=== PATIENT | female | born 1945 | race African-American/Black ===

== ENCOUNTER 2018-04-10 12:06 | Inpatient (IN) | payer MEDICARE, OTHER ==
[~2018-04-10] VITALS: Ht 167.6 cm; Wt 77.3 kg
[~2018-04-10 12:06] MED LIST: AMIO200T4; ASPI-831; CALC1TAB98; CARV25TA79; FINOFIBRATE; FURO-109 PO; FURO20TA3; HYDR-3672; ISOS20TA; LOSA100T3; NIAC750T; TIOT18CA; [UNRECOGNIZED DRUG - CODE]
[2018-04-10] MEDS ORDERED: ISM20 PO (14:37)
[2018-04-10] MEDS ORDERED: HYDR-3672 PO (14:38)
[2018-04-10] MEDS ORDERED: FURO40TA4 PO (14:38)
[2018-04-10] MEDS ORDERED: ALLO100T PO (14:38)
[2018-04-10] MEDS ORDERED: CARV25TA79 PO (14:39)
--- NOTE | 2018-04-10 15:24 | ERD ---
ER Documentation Chief Complaint Chief Complaint SOB x 2 days; hx of CHF HPI This is a 72-year-old female who presents for evaluation of exertional shortness of breath the last 2 days, she also endorses some weight gain. She has history of pacemaker, she takes Lasix at home, she cannot recall the dose, she states that she did most likely intake more than her regular sodium amount over the last few days. She denies any chest pain, no nausea or vomiting, or symptoms have been progressively getting worse. ROS All systems reviewed and are negative except as per history of present illness. Medications Home Meds Reported Medications Carvedilol* (Carvedilol*) 25 Mg Tablet, 25 MG PO BID, #60 TAB 04/10/18 Furosemide* (Furosemide*) 40 Mg Tablet, 40 MG PO BID, TAB 04/10/18 Hydralazine Hcl* (Apresoline*) 50 Mg Tab, 50 MG PO TID, #90 TAB 04/10/18 Allopurinol* (Allopurinol*) 100 Mg Tablet, 200 MG PO DAILY, TAB 04/10/18 Isosorbide Mononitrate* (Isosorbide Mononitrate*) 20 Mg Tablet, 20 MG PO TID, TAB 04/10/18 Discontinued Reported Medications Multivitamin (CHILDREN'S CHEWABLE COMPLETE) 1 Each Tab.chew 05/30/13 Furosemide* (Furosemide*) 20 Mg Tablet, DAILY 05/30/13 [Finofibrate] No Conflict Check 05/30/13 Niacin* (Niaspan*) 750 Mg Tablet.sa 05/30/13 Calcium Carbonate-Vitamin D3 (Calcium + D 600 Tablet) 1 Tab Tablet, DAILY 05/30/13 Hydralazine Hcl* (Hydralazine Hcl*) 50 Mg Tab, BID 05/30/13 Carvedilol* (Carvedilol*) 25 Mg Tablet, DAILY 05/30/13 Losartan Potassium* (Cozaar*) 100 Mg Tablet, DAILY 05/30/13 Amiodarone Hcl* (Amiodarone Hcl*) 200 Mg Tablet 05/30/13 Aspirin (Aspirin) 81 Mg Chew, DAILY 05/30/13 Isosorbide (Isordil) 20 Mg Tab 05/30/13 Tiotropium [place]* (Spiriva*) 18 Mcg Cap.w.dev 05/30/13 Discontinued Scripts Furosemide* (Lasix*) 40 Mg Tablet, 40 MG PO DAILY, #20 TAB Prov:JJ WARNER DO 07/14/15 Allergies Allergies: Coded Allergies: No Known Allergy (Unverified , 04/10/18) PMhx/Soc History of Surgery: Yes (AICD) Anesthesia Reaction: No Hx Neurological Disorder: No Hx Respiratory Disorders: No (CHF) Hx Cardiac Disorders: Yes (HTN,AICD) Hx Psychiatric Problems: No Hx Miscellaneous Medical Probl: Yes (DM) Hx Alcohol Use: No Hx Substance Use: No Hx Tobacco Use: No Smoking Status: Never smoker Physical Exam Vitals Vital Signs Date Temp Pulse Resp B/P (MAP) Pulse Ox O2 O2 Flow FiO2 Time Delivery Rate 04/10/18 98.0 74 18 130/84 97 Room Air 17:00 (99) 04/10/18 98.0 77 18 131/87 98 Room Air 15:30 (102) 04/10/18 98.0 84 20 97 Room Air 14:15 04/10/18 97.6 101 17 121/70 100 12:07 (87) Physical Exam Const: No acute distress Head: Atraumatic Eyes: Normal Conjunctiva ENT: Normal External Ears, Nose and Mouth. Neck: Full range of motion. No meningismus. Resp: Clear to auscultation bilaterally Cardio: Regular rate and rhythm, no murmurs Abd: Soft, non tender, non distended. Normal bowel sounds Skin: No petechiae or rashes Back: No midline or flank tenderness Ext: No cyanosis, or edema Neur: Awake and alert Psych: Normal Mood and Affect Result Diagram: 04/10/18 1414 04/10/18 1414 Results 24 hrs Laboratory Tests Test 04/10/18 14:14 04/10/18 16:57 White Blood Count 8.2 10^3/ul Red Blood Count 4.34 10^6/ul Hemoglobin 11.0 g/dl Hematocrit 32.5 % Mean Corpuscular Volume 74.9 fl Mean Corpuscular Hemoglobin 25.3 pg Mean Corpuscular Hemoglobin Concent 33.8 g/dl Red Cell Distribution Width 15.2 % Platelet Count 308 10^3/UL Mean Platelet Volume 10.8 fl Immature Granulocytes % 0.400 % Neutrophils % 64.2 % Lymphocytes % 25.6 % Monocytes % 8.5 % Eosinophils % 1.1 % Basophils % 0.2 % Nucleated Red Blood Cells % 0.0 /100WBC Immature Granulocytes # 0.030 10^3/ul Neutrophils # 5.2 10^3/ul Lymphocytes # 2.1 10^3/ul Monocytes # 0.7 10^3/ul Eosinophils # 0.1 10^3/ul Basophils # 0.0 10^3/ul Nucleated Red Blood Cells # 0.0 10^3/ul Prothrombin Time 14.6 Sec Prothrombin Time Ratio 1.1 INR International Normalized Ratio 1.13 Sodium Level 143 mmol/L Potassium Level 3.8 mmol/L Chloride Level 103 mmol/L Carbon Dioxide Level 28 mmol/L Anion Gap 12 Blood Urea Nitrogen 18 mg/dl Creatinine 1.44 mg/dl Est Glomerular Filtrat Rate mL/min mL/min Glucose Level 103 mg/dl Calcium Level 8.9 mg/dl Total Bilirubin 0.3 mg/dl Direct Bilirubin 0.00 mg/dl Indirect Bilirubin 0.3 mg/dl Aspartate Amino Transf (AST/SGOT) 21 IU/L Alanine Aminotransferase (ALT/SGPT) 23 IU/L Alkaline Phosphatase 99 IU/L Troponin I 0.028 ng/ml 0.033 ng/ml B-Type Natriuretic Peptide 6000 PG/ML Total Protein 6.7 g/dl Albumin 3.7 g/dl Globulin 3.00 g/dl Albumin/Globulin Ratio 1.23 Current Medications Medications Dose Sig/Hiro Start Time Status Last (Trade) Ordered Route PRN Stop Time Admin Dose Reason Admin Furosemide 40 mg ONCE ONCE 04/10/18 DC 04/10/18 (Lasix) IV 15:30 04/10/18 15:40 15:31 Procedures/MDM 72-year-old female who presents with exertional shortness of breath. Patient had some crackles noted bilaterally, she denies fever, she denies chest pain. Thank you her history and physical are consistent with a likely acute CHF exacerbation. Serial troponins were under the threshold for positive value, given her symptoms, I recommended admission for further workup, as she is already on a cardiac regimen. The patient is agreeable to this plan she will be admitted to Dr. Sadler. EKG: Rate/Rhythm: Electronic pacemaker QRS, ST, T-waves: No changes consistent w/ acute ischemia Impression: No evidence of ischemia or arrhythmia Departure Diagnosis: Primary Impression: Shortness of breath Additional Impression: CHF (congestive heart failure) Heart failure type: systolic Heart failure chronicity: acute Qualified Codes: I50.21 - Acute systolic (congestive) heart failure Condition: Stable QUYNH DALE MD Apr 10, 2018 15:23
[2018-04-10] MEDS ORDERED: FUROSEMIDE 40 MG INJ IV ONE (15:30)
[2018-04-10] MEDS ORDERED: POTASSIUM CHLORIDE (SR) 20 MEQ TAB PO STA (19:47)
--- NOTE | 2018-04-10 19:55 | CONS ---
Date/Time of Note Date/Time of Note DATE: 04/10/18 TIME: 19:49 Assessment/Plan Assessment/Plan Hospital Course 1. Congestive heart failure: Acute on chronic secondary systolic heart failure 2. Chronic kidney disease 3. Dyspnea most likely secondary to above. Cannot rule out underlying bronchitis either 4. Hypertension 5. History of nonobstructive coronary artery disease 6. Status post ICD Recommendations: Patient has received a dose of Lasix in the emergency room. According to nursing staff he has gone to the bathroom twice already although it has not been measured. Continue with the patient home medication. IV Lasix will be initiated. She has received a dose now will give another dose tomorrow morning and adjusted accordingly Aldactone will be added as well. We will consider addition of digoxin as well Echocardiogram will be checked Thank you for his referral. We will continue to follow along with you until Dr. Miles or his associate return on Friday STEWART DERAS MD [facility] Result Diagram: 04/10/18 1414 04/10/18 1414 Results 24hrs Laboratory Tests Test 04/10/18 14:14 04/10/18 16:57 White Blood Count 8.2 # Red Blood Count 4.34 Hemoglobin 11.0 L Hematocrit 32.5 L Mean Corpuscular Volume 74.9 L Mean Corpuscular Hemoglobin 25.3 L Mean Corpuscular Hemoglobin Concent 33.8 Red Cell Distribution Width 15.2 H Platelet Count 308 Mean Platelet Volume 10.8 H Immature Granulocytes % 0.400 Neutrophils % 64.2 Lymphocytes % 25.6 Monocytes % 8.5 Eosinophils % 1.1 Basophils % 0.2 Nucleated Red Blood Cells % 0.0 Immature Granulocytes # 0.030 Neutrophils # 5.2 Lymphocytes # 2.1 Monocytes # 0.7 Eosinophils # 0.1 Basophils # 0.0 Nucleated Red Blood Cells # 0.0 Prothrombin Time 14.6 Prothrombin Time Ratio 1.1 INR International Normalized Ratio 1.13 Sodium Level 143 Potassium Level 3.8 Chloride Level 103 Carbon Dioxide Level 28 Anion Gap 12 Blood Urea Nitrogen 18 Creatinine 1.44 H Est Glomerular Filtrat Rate mL/min Glucose Level 103 Calcium Level 8.9 Total Bilirubin 0.3 Direct Bilirubin 0.00 Indirect Bilirubin 0.3 Aspartate Amino Transf (AST/SGOT) 21 Alanine Aminotransferase (ALT/SGPT) 23 Alkaline Phosphatase 99 Troponin I 0.028 0.033 B-Type Natriuretic Peptide 6000 H Total Protein 6.7 Albumin 3.7 Globulin 3.00 Albumin/Globulin Ratio 1.23 Consultation Date/Type/Reason Admit Date/Time Date of Consultation: Apr 10, 2018 Type of Consult CV Reason for Consultation CHF Requesting Provider: MINERVA GALLAGHER MD Hx of Present Illness Interventional cardiology consultation note Chief complaint: Shortness of breath Reason for consult: Congestive heart failure History of present illness: Thank you for this referral. History was obtained from the patient from review of the old chart from discussion with the physician and staff. This is a pleasant 72-year-old -[place] female with history of nonischemic cardiomyopathy status post ICD, who has had increasing shortness of breath over the past few days. Patient said of the past 3 days she has had cough and shortness of breath. No fever no chills. She has minimal lower extremity edema. No palpitation no ICD discharge. Allergies: No known drug allergies Medications were reviewed as per medical reconciliation sheet Family history: No reported history of early coronary artery disease Social history: Has quit smoking many years ago Past medical history: History of severe nonischemic cardiomyopathy status post ICD placement Chronic kidney disease per review of the old chart Hypertension Past surgical history: ICD placement, coronary angiography in 2014 which has shown nonobstructive coronary artery disease Review of system: Patient denies all others except for above-mentioned Past Medical History Allergies: Coded Allergies: No Known Allergy (Unverified , 04/10/18) Social History Smoking Status: Never smoker Exam/Review of Systems Vital Signs Vitals Vital Signs Date Temp Pulse Resp B/P (MAP) Pulse Ox O2 O2 Flow FiO2 Time Delivery Rate 04/10/18 95 16 113/73 96 Room Air 19:35 (86) 04/10/18 98.0 17:00 Exam General: no acute distress HEENT: NC/AT. pupils are equal. round. NECK: NO JVD. no stridor. CV: RRR. systolic murmur; no gallop or rubs. PULM: no wheezing. + rhonchI at the base. GI: SOFT, NT, ND, no rebound or guarding Extremity: trace B/L LE edema. no clubbing. neuro: awake and alert, OX3. Psych: calm and pleasant rectal: deferred EKG was personally reviewed with a ventricular paced rhythm Chest x-ray was also personally reviewed. Per radiology report shows:Cardiomegaly with mild central pulmonary vascular congestion. STEWART DERAS MD Apr 10, 2018 19:55
[2018-04-10 21:20] VITALS: BP 142/64; PULSE 88; RESP 18
[2018-04-10 21:49] VITALS: PULSE 88
[2018-04-10 22:42] VITALS: PULSE 145
[2018-04-10] MEDS: SPIRONOLACTONE 25 MG TAB PO SCH (22:54)
[2018-04-10 23:10] VITALS: Ht 167.6 cm; Wt 77.3 kg
[2018-04-10 23:50] VITALS: BP_SYST 13; BP_SYST 132; BP_DIAS 67; PULSE 85; RESP 18
[2018-04-11] VITALS (9 sets, daily range): BP systolic 125–144; BP diastolic 63–87; PULSE 72–97; RESP 18–22
[2018-04-11] MEDS ORDERED: FUROSEMIDE 40 MG INJ IV SCH ×2 (06:00→09:00)
[2018-04-11] MEDS: ISOSORBIDE MONONITRATE 20 MG TAB PO SCH ×3 (08:53→20:33)
[2018-04-11] MEDS: SPIRONOLACTONE 25 MG TAB PO SCH (08:54)
[2018-04-11] MEDS: POTASSIUM CHLORIDE (SR) 10 MEQ TAB PO SCH (08:54)
[2018-04-11] MEDS: ALLOPURINOL 100 MG TAB PO SCH (08:54)
--- NOTE | 2018-04-11 14:00 | RADRPT ---
Echocardiogram Report Patient Name: AWAIS AMOR Gender: Female Date: 1945 Study Date: 11-Apr-2018 Media Associate: SANTOSH Location: [facility] Height(Cm): 168 Weight(Kg): 77 BSA: 1.90 Ref. Physician: STEWART BRAVO Quality: Adequate Procedures: Transthoracic echocardiogram with complete 2D, M-Mode, and doppler examination. Indications: Congestive Heart Failure. 2D/M Mode Doppler Measurement Value Normal Ranges Measurement Value Normal Ranges LA Volume 80.5 ml AV Peak Axel 0.7 m/sec LA Volume Index 43 ml/m2 AV Peak PG 2.0 mmHg LA Area 26.0 cm2 LVOT Peak Axel 0.6 m/sec LVIDd 2D 6.0 3.5 - 5.6 cm LVOT Peak PG 1.0 mmHg LVIDs 2D 5.5 2.1 - 4.1 cm MV E Peak Axel 1.3 m/sec LVPWd 2D 1.0 0.6 - 1.1 cm MV PHT 28.0 msec IVSd 2D 0.6 0.6 - 1.1 cm MV Decel Time 95 msec AoR Diam 2D 3.6 2.0 - 3.7 cm MV Decel Foard 14 LA/Ao 2D 1 0 - 1 Lat E` Axel 0.0 m/sec LA Dimen 2D 4.8 2.3 - 4.0 cm Lateral E/E` 26.5 IVC Diam 2.6 1.2 - 2.0 Med E` Axel 0.1 m/sec MV PHT 28.0 msec MVA PHT 7.9 cm2 TR Peak Axel 3.1 m/sec TR Peak PG 39.0 mmHg PV Peak Axel 0.5 m/sec PV Peak PG 1.0 mmHg RVSP 54.0 mmHg Findings Left Ventricle: Normal left ventricular wall thickness. Moderate enlargement of left ventricle cavity. Severe left ventricular systolic dysfunction. Ejection fraction is visually estimated at 20 %. Tissue Doppler/Mitral Doppler indices are consistent with restrictive physiology with markedly elevated left atrial pressure (Stage IIIIV diastolic dysfunction). E/E`=26. Right Ventricle: Normal right ventricular size. Mild to moderate right ventricular hypokinesis seen in the subcostal images mid to apex area. Linear artifact in right ventricle suggestive of catheter, pacer lead, or ICD lead. Left Atrium: There is severe enlargement of left atrium. LA Volume Index=43. LA Dimension4.80 cm. Right Atrium: The right atrium is normal in size. Atrial Septum: Normal atrial septum. Mitral Valve: Mitral valve leaflets appear mildly thickened. Moderate to severe mitral valve regurgitation. Aortic Valve: Normal appearance of the aortic valve. No hemodynamically significant aortic stenosis by doppler. Trileaflet aortic valve. Tricuspid Valve: Normal appearance of the tricuspid valve. Estimated peak PA systolic pressure 54 mmHg. There is mild to moderate tricuspid regurgitation. Pulmonic Valve: Normal pulmonic valve appearance. There is mild pulmonic regurgitation. Pericardium: Small pericardial effusion. Right pleural effusion seen. Aorta: Normal aortic root. IVC: Dilated IVC without respiratory collapse consistent with elevated right atrial pressure. Pulmonary Artery: Normal pulmonary artery size. Conclusions 1.Normal left ventricular wall thickness. Moderate enlargement of left ventricle cavity. Severe left ventricular systolic dysfunction. Ejection fraction is visually estimated at 20 %. Tissue Doppler/Mitral Doppler indices are consistent with restrictive physiology with markedly elevated left atrial pressure (Stage III-IV diastolic dysfunction). E/E`=26. 2.There is severe enlargement of left atrium. LA Volume Index=43. LA Dimension4.80 cm. 3.Mitral valve leaflets appear mildly thickened. Moderate to severe mitral valve regurgitation. 4.Normal appearance of the aortic valve. No hemodynamically significant aortic stenosis by doppler. Trileaflet aortic valve. 5.Normal appearance of the tricuspid valve. Estimated peak PA systolic pressure 54 mmHg. There is mild to moderate tricuspid regurgitation. 6.Small to moderate pericardial effusion. Right pleural effusion seen. Electronically Signed By: Stewart Bravo 11-Apr-2018 13:59:47 -0800 Patient Name: AWAIS AMOR Study Date: 11-Apr-2018 [id number]
--- NOTE | 2018-04-11 15:36 | CONS ---
Date/Time of Note Date/Time of Note DATE: 04/11/18 TIME: 15:33 Consult Date/Type/Reason Admit Date/Time Apr 10, 2018 at 18:56 Initial Consult Date 04/10/18 Requesting Provider: MINERVA GALLAGHER MD Subjective Cardiology follow-up progress note Subjective: Discussed with the staff rhythm was reviewed. Patient was shows runs of nonsustained V. tach Patient with no chest pain or pressure. She complains of cough mostly in shortness of breath. Could not explain the particular event that makes the cough course including no change with position including orthopnea Objective: General: no acute distress HEENT: NC/AT. pupils are equal. round. NECK: NO JVD. no stridor. CV: RRR. systolic murmur; no gallop or rubs. PULM: no wheezing. + rhonchI at the base. GI: SOFT, NT, ND, no rebound or guarding Extremity: trace B/L LE edema. no clubbing. neuro: awake and alert, OX3. Psych: calm and pleasant rectal: deferred EKG was personally reviewed with a ventricular paced rhythm Chest x-ray was also personally reviewed. Per radiology report shows:Cardiomegaly with mild central pulmonary vascular congestion. Echocardiogram was personally reviewed which shows: 1. Normal left ventricular wall thickness. Moderate enlargement of left ventricle cavity. Severe left ventricular systolic dysfunction. Ejection fraction is visually estimated at 20 %. Tissue Doppler/Mitral Doppler indices are consistent with restrictive physiology with markedly elevated left atrial pressure (Stage III-IV diastolic dysfunction). E/E`=26. 2. There is severe enlargement of left atrium. LA Volume Index=43. LA Dimension4.80 cm. 3. Mitral valve leaflets appear mildly thickened. Moderate to severe mitral valve regurgitation. 4. Normal appearance of the aortic valve. No hemodynamically significant aortic stenosis by doppler. Trileaflet aortic valve. 5. Normal appearance of the tricuspid valve. Estimated peak PA systolic pressure 54 mmHg. There is mild to moderate tricuspid regurgitation. 6. Small to moderate pericardial effusion. Right pleural effusion seen. Objective Vital Signs Date Temp Pulse Resp B/P (MAP) Pulse Ox O2 O2 Flow FiO2 Time Delivery Rate 04/11/18 97.6 93 22 144/83 96 Nasal 2.0 12:05 (103) Cannula Intake and Output 04/10/18 04/10/18 04/11/18 1414:59 22:59 06:59 IntakeIntake Total 240 ml OutputOutput Total 400 ml BalanceBalance -160 ml Results/Medications Result Diagram: 04/11/18 0459 04/11/18 0459 Results 24 hrs Laboratory Tests Test 04/10/18 16:57 04/11/18 04:59 Troponin I 0.033 0.034 White Blood Count 6.4 # Red Blood Count 4.11 L Hemoglobin 10.3 L Hematocrit 31.2 L Mean Corpuscular Volume 75.9 L Mean Corpuscular Hemoglobin 25.1 L Mean Corpuscular Hemoglobin Concent 33.0 Red Cell Distribution Width 15.0 H Platelet Count 289 Mean Platelet Volume 11.2 H Immature Granulocytes % 0.300 Neutrophils % 67.3 Lymphocytes % 22.7 Monocytes % 8.5 Eosinophils % 0.9 Basophils % 0.3 Nucleated Red Blood Cells % 0.0 Immature Granulocytes # 0.020 Neutrophils # 4.3 Lymphocytes # 1.5 Monocytes # 0.5 Eosinophils # 0.1 Basophils # 0.0 Nucleated Red Blood Cells # 0.0 Sodium Level 142 Potassium Level 3.9 Chloride Level 105 Carbon Dioxide Level 25 Anion Gap 12 Blood Urea Nitrogen 22 H Creatinine 1.47 H Est Glomerular Filtrat Rate mL/min Glucose Level 116 Calcium Level 8.9 Magnesium Level 1.8 Total Bilirubin 0.3 Direct Bilirubin 0.00 Indirect Bilirubin 0.3 Aspartate Amino Transf (AST/SGOT) 23 Alanine Aminotransferase (ALT/SGPT) 22 Alkaline Phosphatase 96 B-Type Natriuretic Peptide 7880 H Total Protein 6.4 Albumin 3.5 Globulin 2.90 Albumin/Globulin Ratio 1.20 Triglycerides Level 99 Cholesterol Level 113 LDL Cholesterol, Calculated 71 HDL Cholesterol 22 L Cholesterol/HDL Ratio 5.1 Thyroid Stimulating Hormone (TSH) 1.400 Free Thyroxine 1.39 Digoxin Level < 0.4 L Medications Current Medications Spironolactone (Aldactone) 25 mg DAILY PO Last administered on 04/11/18at 08:54; Admin Dose 25 MG; Start 04/10/18 at 20:00 Carvedilol (Coreg) 25 mg BID PO ; Start 04/11/18 at 21:00 Hydralazine HCl (Apresoline) 50 mg TID PO Last administered on 04/11/18at 13:18; Admin Dose 50 MG; Start 1/5/19 at 09:00 Isosorbide Mononitrate (Ismo) 20 mg TID PO Last administered on 04/11/18at 13:17; Admin Dose 20 MG; Start 04/11/18 at 09:00 Allopurinol (Zyloprim) 100 mg DAILY PO Last administered on 04/11/18at 08:54; Admin Dose 100 MG; Start 04/11/18 at 09:00 Potassium Chloride (Klor-Con 10) 10 meq DAILY PO Last administered on 04/11/18at 08:54; Admin Dose 10 MEQ; Start 04/11/18 at 09:00 Furosemide (Lasix) 40 mg DAILY@0600 IV Last administered on 04/11/18at 05:54; Admin Dose 40 MG; Start 04/11/18 at 06:00 Assessment/Plan Chief Complaint/Hosp Course 1. Congestive heart failure: Acute on chronic secondary systolic heart failure 2. Chronic kidney disease 3. Dyspnea most likely secondary to above. Cannot rule out underlying bronchitis either 4. Hypertension 5. History of nonobstructive coronary artery disease 6. Status post ICD 7. Small to moderate pericardial effusion 8. Cough question of underlying bronchitis/asthma/pneumonia at the top of her congestive heart failure Recommendations: I will increase IV Lasix to 40 mg IV twice daily for now Continue with the Coreg and hydralazine eyes with combination Aldactone has been added already Digoxin will be added as well Echocardiogram will be checked again on Friday We will ask for pulmonary consultation as well Thank you for his referral. We will continue to follow along with you until Dr. Miles or his associate return on Friday STEWART DERAS MD [facility] STEWART DERAS MD Apr 11, 2018 15:36
[2018-04-11] MEDS: FUROSEMIDE 40 MG INJ IV SCH (17:29)
[2018-04-11] MEDS ORDERED: ACETAMINOPHEN 325 MG TAB PO PRN (18:00)
[2018-04-11] MEDS: GUAIFENESIN 20 MG/ML 5ML CUP PO PRN ×2 (18:16→20:33)
--- NOTE | 2018-04-11 20:39 | HP ---
Date/Time of Note Date/Time of Note DATE: 04/10/18 TIME: 17:39 Assessment/Plan VTE Prophylaxis Risk score (from [facility] [place])>0 risk: 3 SCD applied (from [facility] [place]): No SCD contraindicated: low risk/ambulating Pharmacological prophylaxis: NA/contraindicated Pharm contraindication: low risk/ambulating Lines/Catheters IV Catheter Type (from [facility]): Peripheral IV Urinary Cath still in place: No Assessment/Plan Assessment/Plan 1. sob/ chf 2. htn 3. rld 4. ckd I ---observe admit to tele ---cards ref ---iv diuretic ---no salt diet Result Diagram: 04/11/18 0459 04/11/18 0459 Results 24hrs Laboratory Tests Test 04/11/18 04:59 White Blood Count 6.4 # Red Blood Count 4.11 L Hemoglobin 10.3 L Hematocrit 31.2 L Mean Corpuscular Volume 75.9 L Mean Corpuscular Hemoglobin 25.1 L Mean Corpuscular Hemoglobin Concent 33.0 Red Cell Distribution Width 15.0 H Platelet Count 289 Mean Platelet Volume 11.2 H Immature Granulocytes % 0.300 Neutrophils % 67.3 Lymphocytes % 22.7 Monocytes % 8.5 Eosinophils % 0.9 Basophils % 0.3 Nucleated Red Blood Cells % 0.0 Immature Granulocytes # 0.020 Neutrophils # 4.3 Lymphocytes # 1.5 Monocytes # 0.5 Eosinophils # 0.1 Basophils # 0.0 Nucleated Red Blood Cells # 0.0 Sodium Level 142 Potassium Level 3.9 Chloride Level 105 Carbon Dioxide Level 25 Anion Gap 12 Blood Urea Nitrogen 22 H Creatinine 1.47 H Est Glomerular Filtrat Rate mL/min Glucose Level 116 Calcium Level 8.9 Magnesium Level 1.8 Total Bilirubin 0.3 Direct Bilirubin 0.00 Indirect Bilirubin 0.3 Aspartate Amino Transf (AST/SGOT) 23 Alanine Aminotransferase (ALT/SGPT) 22 Alkaline Phosphatase 96 Troponin I 0.034 B-Type Natriuretic Peptide 7880 H Total Protein 6.4 Albumin 3.5 Globulin 2.90 Albumin/Globulin Ratio 1.20 Triglycerides Level 99 Cholesterol Level 113 LDL Cholesterol, Calculated 71 HDL Cholesterol 22 L Cholesterol/HDL Ratio 5.1 Thyroid Stimulating Hormone (TSH) 1.400 Free Thyroxine 1.39 Digoxin Level < 0.4 L HPI/ROS Admit Date/Time Admit Date/Time Apr 10, 2018 at 18:56 Hx of Present Illness experienced increased sob for 2days with slight weight gain ROS no f/c/n/v/dysuria/bm change, PMH/Family/Social Past Medical History htn, chf, copd, obesity, ckd I Medications Current Medications Spironolactone (Aldactone) 25 mg DAILY PO Last administered on 04/11/18 08:54; Admin Dose 25 MG; Start 04/10/18 at 20:00 Carvedilol (Coreg) 25 mg BID PO Last administered on 04/11/18 20:33; Admin Dose 25 MG; Start 04/11/18 at 21:00 Hydralazine HCl (Apresoline) 50 mg TID PO Last administered on 04/11/18 20:33; Admin Dose 50 MG; Start 04/11/18 at 09:00 Isosorbide Mononitrate (Ismo) 20 mg TID PO Last administered on 04/11/18 20:33; Admin Dose 20 MG; Start 04/11/18 at 09:00 Allopurinol (Zyloprim) 100 mg DAILY PO Last administered on 04/11/18 08:54; Admin Dose 100 MG; Start 04/11/18 at 09:00 Potassium Chloride (Klor-Con 10) 10 meq DAILY PO Last administered on 04/11/18 08:54; Admin Dose 10 MEQ; Start 04/11/18 at 09:00 Furosemide (Lasix) 40 mg BID DIURETICS IV Last administered on 04/11/18 17:29; Admin Dose 40 MG; Start 04/11/18 at 18:00 Acetaminophen (Tylenol Tab) 650 mg Q6H PRN PO MILD PAIN(1-3)OR ELEVATED TEMP Last administered on 04/11/18 18:15; Admin Dose 650 MG; Start 04/11/18 at 18:00 Guaifenesin (Robitussin Liquid Cup) 100 mg Q6H PRN PO COUGH Last administered on 04/11/18 18:16; Admin Dose 100 MG; Start 04/11/18 at 18:00 Coded Allergies: No Known Allergy (Unverified , 04/10/18) Family History Significant Family History: hypertension Social History Alcohol Use: rarely Smoking Status: Never smoker Drug Use: none Exam/Review of Systems Vital Signs Vitals Vital Signs Date Temp Pulse Resp B/P (MAP) Pulse Ox O2 O2 Flow FiO2 Time Delivery Rate 04/10/18 98.0 73 22 154/88 94 nc 2.0 20:00 Intake and Output 04/10/18 04/10/18 04/11/18 1515:00 23:00 07:00 IntakeIntake Total 240 ml OutputOutput Total 400 ml BalanceBalance -160 ml Exam Exam awake, perrla, eomi, nl ears/ nose/ throat, neck-- supple/ no bruite or jvd, lungs-- dec bs bibasilar, heart-- rr, abd-- soft/ nl bs/ no mass/ nt/ nd, ext-- no c/c, +1-2 pit edema, neuro-- cn2-12/ sensory/ musc strength grossly intact, pulses-- +1 MINERVA Lau MD Apr 11, 2018 20:39
[2018-04-11] MEDS: FERROUS SULFATE (EC) 325 MG TAB PO SCH (23:11)
[2018-04-12] VITALS (11 sets, daily range): BP systolic 106–143; BP diastolic 56–84; PULSE 18–93; RESP 12–22
[2018-04-12] MEDS: GUAIFENESIN 20 MG/ML 5ML CUP PO PRN ×2 (00:10→17:12)
[2018-04-12] MEDS: FUROSEMIDE 40 MG INJ IV SCH (05:55)
[2018-04-12] MEDS: ISOSORBIDE MONONITRATE 20 MG TAB PO SCH ×3 (08:04→20:40)
[2018-04-12] MEDS: ALLOPURINOL 100 MG TAB PO SCH (08:05)
[2018-04-12] MEDS: SPIRONOLACTONE 25 MG TAB PO SCH (08:05)
[2018-04-12] MEDS: POTASSIUM CHLORIDE (SR) 10 MEQ TAB PO SCH (08:05)
[2018-04-12] MEDS: FERROUS SULFATE (EC) 325 MG TAB PO SCH ×3 (08:06→20:39)
--- NOTE | 2018-04-12 14:11 | PN ---
Date/Time of Note Date/Time of Note DATE: 04/12/18 TIME: 14:11 Assessment/Plan VTE Prophylaxis Risk score (from [facility])>0 risk: 3 SCD applied (from [facility]): No SCD contraindicated: low risk/ambulating Pharmacological prophylaxis: NA/contraindicated Pharm contraindication: low risk/ambulating Lines/Catheters IV C[facility]ter Type (from [facility] Saline Lock Urinary Cath still in place: No Assessment/Plan Assessment/Plan 1. chf 2. htn 3. copd 4. ckdI ---per cards ---iv diuretic ---less salt diet ed Result Diagram: 04/11/189 04/12/18 0457 Results 24hrs Laboratory Tests Test 04/12/18 04:57 Sodium Level 142 Potassium Level 3.4 L Chloride Level 107 Carbon Dioxide Level 25 Anion Gap 10 Blood Urea Nitrogen 23 H Creatinine 1.45 H Est Glomerular Filtrat Rate mL/min Glucose Level 101 Calcium Level 8.8 Magnesium Level 1.8 Total Bilirubin 0.3 Direct Bilirubin 0.00 Indirect Bilirubin 0.3 Aspartate Amino Transf (AST/SGOT) 19 Alanine Aminotransferase (ALT/SGPT) 24 Alkaline Phosphatase 97 B-Type Natriuretic Peptide 8560 H Total Protein 6.0 L Albumin 3.2 L Globulin 2.80 Albumin/Globulin Ratio 1.14 Subjective 24 Hr Interval Summary Free Text/Dictation still sob, less cp Exam/Review of Systems Vital Signs Vitals Vital Signs Date Temp Pulse Resp B/P (MAP) Pulse Ox O2 O2 Flow FiO2 Time Delivery Rate 04/12/18 71 12 106/56 13:39 (73) 04/12/18 98.0 96 Nasal 11:39 Cannula 04/12/18 2.0 00:00 Intake and Output 04/11/18 04/11/18 04/12/18 1515:00 23:00 07:00 IntakeIntake Total 820 ml 350 ml BalanceBalance 820 ml 350 ml Exam awake, in bed, rr, dec bibasilar bs+, slight pit edema+ Medications Medications Current Medications Spironolactone (Aldactone) 25 mg DAILY PO Last administered on 04/12/18at 08:05; Admin Dose 25 MG; Start 04/10/18 at 20:00 Carvedilol (Coreg) 25 mg BID PO Last administered on 04/12/18at 08:05; Admin Dose 25 MG; Start 04/11/18 at 21:00 Hydralazine HCl (Apresoline) 50 mg TID PO Last administered on 04/12/18 08:05; Admin Dose 50 MG; Start 04/11/18 at 09:00 Isosorbide Mononitrate (Ismo) 20 mg TID PO Last administered on 04/12/18at 08:04; Admin Dose 20 MG; Start 04/11/18 at 09:00 Allopurinol (Zyloprim) 100 mg DAILY PO Last administered on 04/12/18 08:05; Admin Dose 100 MG; Start 04/11/18 at 09:00 Potassium Chloride (Klor-Con 10) 10 meq DAILY PO Last administered on 04/12/18 08:05; Admin Dose 10 MEQ; Start 04/11/18 at 09:00 Furosemide (Lasix) 40 mg BID DIURETICS IV Last administered on 04/12/18at 05:55; Admin Dose 40 MG; Start 04/11/18 at 18:00 Acetaminophen (Tylenol Tab) 650 mg Q6H PRN PO MILD PAIN(1-3)OR ELEVATED TEMP Last administered on 04/11/18at 18:15; Admin Dose 650 MG; Start 04/11/18 at 18:00 Guaifenesin (Robitussin Liquid Cup) 100 mg Q6H PRN PO COUGH Last administered on 04/12/18 00:10; Admin Dose 100 MG; Start 04/11/18 at 18:00 Ferrous Sulfate (Ferrous Sulfate (Ec)) 325 mg TID PO Last administered on 04/12/18 08:06; Admin Dose 325 MG; Start 04/11/18 at 21:00 MINERVA GALLAGHER MD Apr 12, 2018 14:11
--- NOTE | 2018-04-12 16:14 | CONS ---
Date/Time of Note Date/Time of Note DATE: 04/12/18 TIME: 16:13 Consult Date/Type/Reason Admit Date/Time Apr 10, 2018 at 18:56 Initial Consult Date 04/10/18 Requesting Provider: MINERVA GALLAGHER MD Subjective Cardiology follow-up progress note Subjective: Discussed with the staff rhythm was reviewed. Patient remains in NSR / V paced Patient with no chest pain or pressure. She has less shortness of breath and cough today but complains of diarrhea Objective: General: no acute distress HEENT: NC/AT. pupils are equal. round. NECK: NO JVD. no stridor. CV: RRR. systolic murmur; no gallop or rubs. PULM: no wheezing. Very minimal rhonchi at the baseline GI: SOFT, NT, ND, no rebound or guarding Extremity: No significant LE edema. no clubbing. neuro: awake and alert, OX3. Psych: calm and pleasant rectal: deferred EKG was personally reviewed with a ventricular paced rhythm Chest x-ray was also personally reviewed. Per radiology report shows:Cardiomegaly with mild central pulmonary vascular congestion. Echocardiogram was personally reviewed which shows: 1. Normal left ventricular wall thickness. Moderate enlargement of left ventricle cavity. Severe left ventricular systolic dysfunction. Ejection fraction is visually estimated at 20 %. Tissue Doppler/Mitral Doppler indices are consistent with restrictive physiology with markedly elevated left atrial pressure (Stage III-IV diastolic dysfunction). E/E`=26. 2. There is severe enlargement of left atrium. LA Volume Index=43. LA Dimension4.80 cm. 3. Mitral valve leaflets appear mildly thickened. Moderate to severe mitral valve regurgitation. 4. Normal appearance of the aortic valve. No hemodynamically significant aortic stenosis by doppler. Trileaflet aortic valve. 5. Normal appearance of the tricuspid valve. Estimated peak PA systolic pressure 54 mmHg. There is mild to moderate tricuspid regurgitation. 6. Small to moderate pericardial effusion. Right pleural effusion seen. Objective Vital Signs Date Temp Pulse Resp B/P (MAP) Pulse Ox O2 O2 Flow FiO2 Time Delivery Rate 04/12/18 73 16:00 04/12/18 97.6 22 122/69 96 Nasal 15:10 (86) Cannula 04/12/18 2.0 00:00 Intake and Output 04/11/18 04/11/18 04/12/18 1515:00 23:00 07:00 IntakeIntake Total 820 ml 350 ml BalanceBalance 820 ml 350 ml Results/Medications Result Diagram: 04/11/18 0459 04/12/18 0457 Results 24 hrs Laboratory Tests Test 04/12/18 04:57 Sodium Level 142 Potassium Level 3.4 L Chloride Level 107 Carbon Dioxide Level 25 Anion Gap 10 Blood Urea Nitrogen 23 H Creatinine 1.45 H Est Glomerular Filtrat Rate mL/min Glucose Level 101 Calcium Level 8.8 Magnesium Level 1.8 Total Bilirubin 0.3 Direct Bilirubin 0.00 Indirect Bilirubin 0.3 Aspartate Amino Transf (AST/SGOT) 19 Alanine Aminotransferase (ALT/SGPT) 24 Alkaline Phosphatase 97 B-Type Natriuretic Peptide 8560 H Total Protein 6.0 L Albumin 3.2 L Globulin 2.80 Albumin/Globulin Ratio 1.14 Medications Current Medications Spironolactone (Aldactone) 25 mg DAILY PO Last administered on 04/12/18 08:05; Admin Dose 25 MG; Start 04/10/18 at 20:00 Carvedilol (Coreg) 25 mg BID PO Last administered on 04/12/18 08:05; Admin Dose 25 MG; Start 04/11/18 at 21:00 Hydralazine HCl (Apresoline) 50 mg TID PO Last administered on 04/12/18 16:01; Admin Dose 50 MG; Start 04/11/18 at 09:00 Isosorbide Mononitrate (Ismo) 20 mg TID PO Last administered on 04/12/18 16:01; Admin Dose 20 MG; Start 04/11/18 at 09:00 Allopurinol (Zyloprim) 100 mg DAILY PO Last administered on 04/12/18 08:05; Admin Dose 100 MG; Start 04/11/18 at 09:00 Potassium Chloride (Klor-Con 10) 10 meq DAILY PO Last administered on 04/12/18 08:05; Admin Dose 10 MEQ; Start 04/11/18 at 09:00 Furosemide (Lasix) 40 mg BID DIURETICS IV Last administered on 04/12/18 05:55; Admin Dose 40 MG; Start 04/11/18 at 18:00 Acetaminophen (Tylenol Tab) 650 mg Q6H PRN PO MILD PAIN(1-3)OR ELEVATED TEMP Last administered on 04/11/18at 18:15; Admin Dose 650 MG; Start 04/11/18 at 18:00 Guaifenesin (Robitussin Liquid Cup) 100 mg Q6H PRN PO COUGH Last administered on 04/12/18at 00:10; Admin Dose 100 MG; Start 04/11/18 at 18:00 Ferrous Sulfate (Ferrous Sulfate (Ec)) 325 mg TID PO Last administered on 04/12/18at 16:02; Admin Dose 325 MG; Start 04/11/18 at 21:00 Assessment/Plan Chief Complaint/Hosp Course 1. Congestive heart failure: Acute on chronic secondary systolic heart failure 2. Chronic kidney disease 3. Dyspnea most likely secondary to above. Cannot rule out underlying bronch itis either 4. Hypertension 5. History of nonobstructive coronary artery disease 6. Status post ICD 7. Small to moderate pericardial effusion 8. Cough question of underlying bronchitis/asthma/pneumonia at the top of her congestive heart failure Recommendations: I will decrease IV Lasix to 40 mg IV daily for now to be adjusted again tomorrow as needed Continue with the Coreg and hydralazine eyes with combination Aldactone has been added already Digoxin will be added as well Echocardiogram will be checked again on Friday to follow-up on pericardial effusion Consider pulmonary consultation as well Thank you for his referral. We will continue to follow along with you until Dr. Miles or his associate return on Friday STEWART DERAS MD [facility] STEWART DERAS MD Apr 12, 2018 16:14
--- NOTE | 2018-04-12 21:22 | RADRPT ---
Vent Rate: 83 bpm RR Interval: 0 msec [place] Interval: 0 msec QRS Duration: 162 msec QT Interval: 458 msec QTC Interval: 538 msec P-R-T [place]: 0 - -89 - 88 degrees Electronic ventricular pacemaker Electronically Signed By: Elia Swift [id number]
[2018-04-13] VITALS (9 sets, daily range): BP systolic 104–127; BP diastolic 65–86; PULSE 58–96; RESP 18
[2018-04-13] MEDS: GUAIFENESIN 20 MG/ML 5ML CUP PO PRN ×2 (00:32→20:30)
[2018-04-13] MEDS: ALLOPURINOL 100 MG TAB PO SCH (08:19)
[2018-04-13] MEDS: POTASSIUM CHLORIDE (SR) 10 MEQ TAB PO SCH (08:19)
[2018-04-13] MEDS: FERROUS SULFATE (EC) 325 MG TAB PO SCH ×3 (08:19→20:30)
[2018-04-13] MEDS: SPIRONOLACTONE 25 MG TAB PO SCH (08:20)
[2018-04-13] MEDS: ISOSORBIDE MONONITRATE 20 MG TAB PO SCH ×3 (08:20→20:30)
[2018-04-13] MEDS: FUROSEMIDE 40 MG INJ IV SCH (08:21)
--- NOTE | 2018-04-13 13:55 | PN ---
Date/Time of Note Date/Time of Note DATE: 04/13/18 TIME: 13:53 Assessment/Plan VTE Prophylaxis Risk score (from [facility])>0 risk: 3 SCD applied (from [facility]): No SCD contraindicated: other Pharmacological prophylaxis: other Lines/Catheters IV [facility]ter Type (from [facility]): Saline Lock Urinary Cath still in place: No Assessment/Plan Assessment/Plan cardiomyopathy with h/o ef 10-20 % - on diuresis. doing much better. denies sob. -on echo show pericardial fluid and pleural effusion. --cards following. not to be d/c til at least tomorrow. -overall better. Result Diagram: 04/13/18 0447 04/13/18 0450 Results 24hrs Laboratory Tests Test 04/13/18 04:47 04/13/18 04:50 White Blood Count 6.8 Red Blood Count 3.89 L Hemoglobin 9.7 L Hematocrit 28.6 L Mean Corpuscular Volume 73.5 L Mean Corpuscular Hemoglobin 24.9 L Mean Corpuscular Hemoglobin Concent 33.9 Red Cell Distribution Width 14.9 H Platelet Count 260 Mean Platelet Volume 10.9 H Immature Granulocytes % 0.300 Neutrophils % 56.1 Lymphocytes % 33.0 Monocytes % 7.8 Eosinophils % 2.4 Basophils % 0.4 Nucleated Red Blood Cells % 0.0 Immature Granulocytes # 0.020 Neutrophils # 3.8 Lymphocytes # 2.2 Monocytes # 0.5 Eosinophils # 0.2 Basophils # 0.0 Nucleated Red Blood Cells # 0.0 Sodium Level 139 Potassium Level 3.4 L Chloride Level 105 Carbon Dioxide Level 25 Anion Gap 9 Blood Urea Nitrogen 26 H Creatinine 1.44 H Est Glomerular Filtrat Rate mL/min Glucose Level 91 Calcium Level 8.6 Magnesium Level 1.8 Total Bilirubin 0.1 L Direct Bilirubin 0.00 Indirect Bilirubin 0.1 Aspartate Amino Transf (AST/SGOT) 17 Alanine Aminotransferase (ALT/SGPT) 20 Alkaline Phosphatase 91 B-Type Natriuretic Peptide 5210 H Total Protein 5.9 L Albumin 3.1 L Globulin 2.80 Albumin/Globulin Ratio 1.10 Subjective 24 Hr Interval Summary Free Text/Dictation in for chf. feeling much better. Exam/Review of Systems Vital Signs Vitals Vital Signs Date Temp Pulse Resp B/P (MAP) Pulse Ox O2 O2 Flow FiO2 Time Delivery Rate 04/13/18 92 12:38 04/13/18 97.4 18 104/66 98 Room Air 11:23 (79) 04/12/18 2.0 00:00 Intake and Output 04/12/18 04/12/18 04/13/18 1515:00 23:00 07:00 IntakeIntake Total 720 ml 300 ml BalanceBalance 720 ml 300 ml Medications Medications Current Medications Spironolactone (Aldactone) 25 mg DAILY PO Last administered on 04/13/18 08:20; Admin Dose 25 MG; Start 04/10/18 at 20:00 Carvedilol (Coreg) 25 mg BID PO Last administered on 04/13/18 08:20; Admin Dose 25 MG; Start 04/11/18 at 21:00 Hydralazine HCl (Apresoline) 50 mg TID PO Last administered on 04/13/18 12:15; Admin Dose 50 MG; Start 04/11/18 at 09:00 Isosorbide Mononitrate (Ismo) 20 mg TID PO Last administered on 04/13/18 12:14; Admin Dose 20 MG; Start 04/11/18 at 09:00 Allopurinol (Zyloprim) 100 mg DAILY PO Last administered on 04/13/18 08:19; Admin Dose 100 MG; Start 04/11/18 at 09:00 Potassium Chloride (Klor-Con 10) 10 meq DAILY PO Last administered on 04/13/18 08:19; Admin Dose 10 MEQ; Start 04/11/18 at 09:00 Acetaminophen (Tylenol Tab) 650 mg Q6H PRN PO MILD PAIN(1-3)OR ELEVATED TEMP Last administered on 04/11/18 18:15; Admin Dose 650 MG; Start 04/11/18 at 18:00 Guaifenesin (Robitussin Liquid Cup) 100 mg Q6H PRN PO COUGH Last administered on 04/13/18 00:32; Admin Dose 100 MG; Start 04/11/18 at 18:00 Ferrous Sulfate (Ferrous Sulfate (Ec)) 325 mg TID PO Last administered on 04/13/18 12:14; Admin Dose 325 MG; Start 04/11/18 at 21:00 Furosemide (Lasix) 40 mg DAILY IV Last administered on 04/13/18 08:21; Admin Dose 40 MG; Start 04/13/18 at 09:00 JANESSA DODSON MD Apr 13, 2018 13:55
[2018-04-13] MEDS ORDERED: POTASSIUM CHLORIDE (SR) 20 MEQ TAB PO STA (15:28)
[2018-04-13] MEDS ORDERED: FUROSEMIDE 20 MG INJ IV ONE (15:30)
--- NOTE | 2018-04-13 15:32 | CONS ---
Date/Time of Note Date/Time of Note DATE: 04/13/18 TIME: 15:31 Assessment/Plan Assessment/Plan Assessment/Plan 1. Congestive heart failure: Acute on chronic secondary systolic heart failure 2. Chronic kidney disease 3. Small to medium sized pericardial effusion 4. Hypertension 5. History of nonobstructive coronary artery disease 6. Status post ICD -Patient with significant improvement of shortness of breath, extra dose of IV Lasix this afternoon 20 mg and then switched to patient's home dose of 40 mg p.o. twice daily starting from tomorrow. Will order potassium and magnesium supplementation. DC planning in the next 24 hours. Result Diagram: 04/13/18 0447 04/13/18 0450 Results 24hrs Laboratory Tests Test 04/13/18 04:47 04/13/18 04:50 White Blood Count 6.8 Red Blood Count 3.89 L Hemoglobin 9.7 L Hematocrit 28.6 L Mean Corpuscular Volume 73.5 L Mean Corpuscular Hemoglobin 24.9 L Mean Corpuscular Hemoglobin Concent 33.9 Red Cell Distribution Width 14.9 H Platelet Count 260 Mean Platelet Volume 10.9 H Immature Granulocytes % 0.300 Neutrophils % 56.1 Lymphocytes % 33.0 Monocytes % 7.8 Eosinophils % 2.4 Basophils % 0.4 Nucleated Red Blood Cells % 0.0 Immature Granulocytes # 0.020 Neutrophils # 3.8 Lymphocytes # 2.2 Monocytes # 0.5 Eosinophils # 0.2 Basophils # 0.0 Nucleated Red Blood Cells # 0.0 Sodium Level 139 Potassium Level 3.4 L Chloride Level 105 Carbon Dioxide Level 25 Anion Gap 9 Blood Urea Nitrogen 26 H Creatinine 1.44 H Est Glomerular Filtrat Rate mL/min Glucose Level 91 Calcium Level 8.6 Magnesium Level 1.8 Total Bilirubin 0.1 L Direct Bilirubin 0.00 Indirect Bilirubin 0.1 Aspartate Amino Transf (AST/SGOT) 17 Alanine Aminotransferase (ALT/SGPT) 20 Alkaline Phosphatase 91 B-Type Natriuretic Peptide 5210 H Total Protein 5.9 L Albumin 3.1 L Globulin 2.80 Albumin/Globulin Ratio 1.10 Consultation Date/Type/Reason Admit Date/Time Apr 10, 2018 at 18:56 Initial Consult Date 04/10/18 Type of Consult cv Requesting Provider: MINERVA GALLAGHER MD 24 HR Interval Summary Free Text/Dictation Feeling much better today, much less shortness of breath with ambulation. Denies chest pain or palpitations Exam/Review of Systems Vital Signs Vitals Vital Signs Date Temp Pulse Resp B/P (MAP) Pulse Ox O2 O2 Flow FiO2 Time Delivery Rate 04/13/18 92 12:38 04/13/18 97.4 18 104/66 98 Room Air 11:23 (79) 04/12/18 2.0 00:00 Intake and Output 04/12/18 04/12/18 04/13/18 1515:00 23:00 07:00 IntakeIntake Total 720 ml 300 ml BalanceBalance 720 ml 300 ml Exam No apparent distress, no dyspnea with speaking Constitutional: alert, oriented Head: normocephalic Respiratory: other (Coarse breath sounds bilaterally, no wheezing) Cardiovascular: regular rate and rhythm, other (S1-S2 heard) Gastrointestinal: soft, non-tender, bowel sounds Extremities: edema (Trace) Medications Medications Current Medications Spironolactone (Aldactone) 25 mg DAILY PO Last administered on 04/13/18 08:20; Admin Dose 25 MG; Start 04/10/18 at 20:00 Carvedilol (Coreg) 25 mg BID PO Last administered on 04/13/18 08:20; Admin Dose 25 MG; Start 04/11/18 at 21:00 Hydralazine HCl (Apresoline) 50 mg TID PO Last administered on 04/13/18 12:15; Admin Dose 50 MG; Start 04/11/18 at 09:00 Isosorbide Mononitrate (Ismo) 20 mg TID PO Last administered on 04/13/18 12:14; Admin Dose 20 MG; Start 04/11/18 at 09:00 Allopurinol (Zyloprim) 100 mg DAILY PO Last administered on 04/13/18 08:19; Admin Dose 100 MG; Start 04/11/18 at 09:00 Potassium Chloride (Klor-Con 10) 10 meq DAILY PO Last administered on 04/13/18 08:19; Admin Dose 10 MEQ; Start 04/11/18 at 09:00 Acetaminophen (Tylenol Tab) 650 mg Q6H PRN PO MILD PAIN(1-3)OR ELEVATED TEMP Last administered on 04/11/18at 18:15; Admin Dose 650 MG; Start 04/11/18 at 18:00 Guaifenesin (Robitussin Liquid Cup) 100 mg Q6H PRN PO COUGH Last administered on 04/13/18at 00:32; Admin Dose 100 MG; Start 04/11/18 at 18:00 Ferrous Sulfate (Ferrous Sulfate (Ec)) 325 mg TID PO Last administered on 04/13/18 12:14; Admin Dose 325 MG; Start 04/11/18 at 21:00 Furosemide (Lasix) 40 mg DAILY IV Last administered on 04/13/18at 08:21; Admin Dose 40 MG; Start 04/13/18 at 09:00 Erwin Doss DO Apr 13, 2018 15:32
--- NOTE | 2018-04-13 16:07 | RADRPT ---
Echocardiogram Report Patient Name: AWAIS AMOR Gender: Female Date: 1945 Study Date: 13-Apr-2018 Practice Billing Associate: Cristina Boles RDCS Location: 603 Ref. Physician: STEWART DERAS Quality: Adequate Procedures: Transthoracic echocardiogram examination. Indications: Pericardial Effusion. Findings Left Ventricle: Severe left ventricular systolic dysfunction. The left ventricular ejection fraction is visually estimated at 25 %. Right Ventricle: Normal right ventricular systolic function. Linear artifact in right ventricle suggestive of catheter, pacer lead, or ICD lead. Pericardium: Small to moderate pericardial effusion. Conclusions Severe left ventricular systolic dysfunction. The left ventricular ejection fraction is visually estimated at 25 %. Small to moderate pericardial effusion. Electronically Signed By: Erwin Doss 13-Apr-2018 16:06:37 -0800 Patient Name: AWAIS AMOR Study Date: 13-Apr-2018 [id number]
[2018-04-13] MEDS ORDERED: MAGNESIUM SULFATE 2 GM/50 ML 50 ML IVPB ONE (16:30)
[2018-04-14] VITALS (7 sets, daily range): BP systolic 114–121; BP diastolic 69–74; PULSE 64–83; RESP 18–20
[2018-04-14] MEDS: GUAIFENESIN 20 MG/ML 5ML CUP PO PRN (05:59)
[2018-04-14] MEDS ORDERED: FUROSEMIDE 40 MG TAB PO SCH (08:00)
[2018-04-14] MEDS: POTASSIUM CHLORIDE (SR) 10 MEQ TAB PO SCH (08:32)
[2018-04-14] MEDS: ALLOPURINOL 100 MG TAB PO SCH (08:32)
[2018-04-14] MEDS: SPIRONOLACTONE 25 MG TAB PO SCH (08:32)
[2018-04-14] MEDS: FERROUS SULFATE (EC) 325 MG TAB PO SCH ×2 (08:32→12:52)
[2018-04-14] MEDS: ISOSORBIDE MONONITRATE 20 MG TAB PO SCH ×2 (08:33→12:53)
[2018-04-14] MEDS: FUROSEMIDE 40 MG INJ IV SCH (09:00)
--- NOTE | 2018-04-14 12:46 | CONS ---
Date/Time of Note Date/Time of Note DATE: 04/14/18 TIME: 12:45 Assessment/Plan Assessment/Plan Assessment/Plan 1. Congestive heart failure: Acute on chronic secondary systolic heart failure 2. Chronic kidney disease 3. Small to medium sized pericardial effusion 4. Hypertension 5. History of nonobstructive coronary artery disease 6. Status post ICD -Patient with progressive improvement in symptoms. Currently on home dose Lasix 40 mg p.o. twice daily, would continue. Blood pressure trend overall remained stable. No further inpatient cardiac workup needed at the current time. Result Diagram: 04/14/1818 04/14/1818 Results 24hrs Laboratory Tests Test 04/14/18 05:18 White Blood Count 6.3 Red Blood Count 4.06 L Hemoglobin 10.2 L Hematocrit 30.6 L Mean Corpuscular Volume 75.4 L Mean Corpuscular Hemoglobin 25.1 L Mean Corpuscular Hemoglobin Concent 33.3 Red Cell Distribution Width 15.1 H Platelet Count 281 Mean Platelet Volume 10.8 H Immature Granulocytes % 0.500 H Neutrophils % 58.1 Lymphocytes % 28.9 Monocytes % 9.3 Eosinophils % 2.9 Basophils % 0.3 Nucleated Red Blood Cells % 0.0 Immature Granulocytes # 0.030 Neutrophils # 3.7 Lymphocytes # 1.8 Monocytes # 0.6 Eosinophils # 0.2 Basophils # 0.0 Nucleated Red Blood Cells # 0.0 Sodium Level 143 Potassium Level 4.2 Chloride Level 107 Carbon Dioxide Level 28 Anion Gap 8 Blood Urea Nitrogen 23 H Creatinine 1.45 H Est Glomerular Filtrat Rate mL/min Glucose Level 102 Calcium Level 9.1 Magnesium Level 2.3 Total Bilirubin 0.2 Direct Bilirubin 0.00 Indirect Bilirubin 0.2 Aspartate Amino Transf (AST/SGOT) 16 Alanine Aminotransferase (ALT/SGPT) 23 Alkaline Phosphatase 96 B-Type Natriuretic Peptide 4720 H Total Protein 6.0 L Albumin 3.4 Globulin 2.60 Albumin/Globulin Ratio 1.30 Consultation Date/Type/Reason Admit Date/Time Apr 10, 2018 at 18:56 Initial Consult Date 04/10/18 Type of Consult cv Requesting Provider: MINERVA GALLAGHER MD 24 HR Interval Summary Free Text/Dictation Feeling much better. Denies shortness of breath, chest pain. Still with cough but improved compared to yesterday Exam/Review of Systems Vital Signs Vitals Vital Signs Date Temp Pulse Resp B/P (MAP) Pulse Ox O2 O2 Flow FiO2 Time Delivery Rate 04/14/18 81 12:12 04/14/18 97.8 18 116/74 97 Room Air 11:38 (88) 04/12/18 2.0 00:00 Intake and Output 04/13/18 04/13/18 04/14/18 1515:00 23:00 07:00 IntakeIntake Total 350 ml BalanceBalance 350 ml Exam No apparent distress Constitutional: alert, oriented Head: normocephalic Respiratory: other (Coarse breath sounds bilaterally, no wheezing) Cardiovascular: regular rate and rhythm, other (S1-S2 heard) Gastrointestinal: soft, non-tender, bowel sounds Extremities: edema Medications Medications Current Medications Spironolactone (Aldactone) 25 mg DAILY PO Last administered on 04/14/18 08:32; Admin Dose 25 MG; Start 04/10/18 at 20:00 Carvedilol (Coreg) 25 mg BID PO Last administered on 04/14/18 08:32; Admin Dose 25 MG; Start 04/11/18 at 21:00 Hydralazine HCl (Apresoline) 50 mg TID PO Last administered on 04/14/18 08:33; Admin Dose 50 MG; Start 04/11/18 at 09:00 Isosorbide Mononitrate (Ismo) 20 mg TID PO Last administered on 04/14/18 08:33; Admin Dose 20 MG; Start 04/11/18 at 09:00 Allopurinol (Zyloprim) 100 mg DAILY PO Last administered on 04/14/18 08:32; Admin Dose 100 MG; Start 04/11/18 at 09:00 Potassium Chloride (Klor-Con 10) 10 meq DAILY PO Last administered on 04/14/18 08:32; Admin Dose 10 MEQ; Start 04/11/18 at 09:00 Acetaminophen (Tylenol Tab) 650 mg Q6H PRN PO MILD PAIN(1-3)OR ELEVATED TEMP Last administered on 04/11/18 18:15; Admin Dose 650 MG; Start 04/11/18 at 18:00 Guaifenesin (Robitussin Liquid Cup) 100 mg Q6H PRN PO COUGH Last administered on 04/14/18 05:59; Admin Dose 100 MG; Start 04/11/18 at 18:00 Ferrous Sulfate (Ferrous Sulfate (Ec)) 325 mg TID PO Last administered on 04/14/18at 08:32; Admin Dose 325 MG; Start 04/11/18 at 21:00 Furosemide (Lasix) 40 mg BID DIURETICS PO Last administered on 04/14/18at 11:16; Admin Dose 40 MG; Start 04/14/18 at 08:00 Erwin Doss DO Apr 14, 2018 12:46
--- NOTE | 2018-04-14 13:10 | DS ---
Date/Time of Note Date/Time of Note DATE: 04/14/18 TIME: 13:07 Discharge Summary Admission/Discharge Info Admit Date/Time Apr 10, 2018 at 18:56 Discharge Date/Time 04/14/18 Patient Condition: Good Consults cards [facility] Course pt admitted with chf by cxr and sob. pt was diuresed. improved. spironolactone with started. lasix went back to normal dose. anemia slowly improved. was given fe Home Meds Reported Medications Carvedilol* (Carvedilol*) 25 Mg Tablet, 25 MG PO BID, #60 TAB 04/10/18 Furosemide* (Furosemide*) 40 Mg Tablet, 40 MG PO BID, TAB 04/10/18 Hydralazine Hcl* (Apresoline*) 50 Mg Tab, 50 MG PO TID, #90 TAB 04/10/18 Allopurinol* (Allopurinol*) 100 Mg Tablet, 200 MG PO DAILY, TAB 04/10/18 Isosorbide Mononitrate* (Isosorbide Mononitrate*) 20 Mg Tablet, 20 MG PO TID, TAB 04/10/18 Discontinued Reported Medications Multivitamin (CHILDREN'S CHEWABLE COMPLETE) 1 Each Tab.chew 05/30/13 Furosemide* (Furosemide*) 20 Mg Tablet, DAILY 05/30/13 [Finofibrate] No Conflict Check 05/30/13 Niacin* (Niaspan*) 750 Mg Tablet.sa 05/30/13 Calcium Carbonate-Vitamin D3 (Calcium + D 600 Tablet) 1 Tab Tablet, DAILY 05/30/13 Hydralazine Hcl* (Hydralazine Hcl*) 50 Mg Tab, BID 05/30/13 Carvedilol* (Carvedilol*) 25 Mg Tablet, DAILY 05/30/13 Losartan Potassium* (Cozaar*) 100 Mg Tablet, DAILY 05/30/13 Amiodarone Hcl* (Amiodarone Hcl*) 200 Mg Tablet 05/30/13 Aspirin (Aspirin) 81 Mg Chew, DAILY 05/30/13 Isosorbide (Isordil) 20 Mg Tab 05/30/13 Tiotropium Rose* (Spiriva*) 18 Mcg Cap.w.dev 05/30/13 Discontinued Scripts Furosemide* (Lasix*) 40 Mg Tablet, 40 MG PO DAILY, #20 TAB Prov:MUKUND WARNERS KeyshaGurpreet DOMINGUEZ 07/14/15 Follow-up Plan f/u 1 mn in office. Primary Care Provider Janessa Dodson MD Time spent on discharge: < 30 minutes Pending Labs Laboratory Tests Test 04/14/18 05:18 White Blood Count 6.3 10^3/ul (4.8-10.8) Red Blood Count 4.06 10^6/ul (4.20-5.40) Hemoglobin 10.2 g/dl (12.0-16.0) Hematocrit 30.6 % (37.0-47.0) Mean Corpuscular Volume 75.4 fl (82.0-101.0) Mean Corpuscular Hemoglobin 25.1 pg (29.0-33.0) Mean Corpuscular Hemoglobin Concent 33.3 g/dl (32.0-37.0) Red Cell Distribution Width 15.1 % (11.5-14.5) Platelet Count 281 10^3/UL (140-415) Mean Platelet Volume 10.8 fl (7.4-10.4) Immature Granulocytes % 0.500 % (0.001-0.429) Neutrophils % 58.1 % (39.0-77.0) Lymphocytes % 28.9 % (15.0-51.0) Monocytes % 9.3 % (0.0-11.0) Eosinophils % 2.9 % (0.0-7.0) Basophils % 0.3 % (0.0-2.0) Nucleated Red Blood Cells % 0.0 /100WBC (0.0-0.0) Immature Granulocytes # 0.030 10^3/ul (0.0-0.031) Neutrophils # 3.7 10^3/ul (1.6-7.5) Lymphocytes # 1.8 10^3/ul (0.8-2.9) Monocytes # 0.6 10^3/ul (0.3-0.9) Eosinophils # 0.2 10^3/ul (0.0-0.5) Basophils # 0.0 10^3/ul (0.0-0.1) Nucleated Red Blood Cells # 0.0 10^3/ul (0.0-0.0) Sodium Level 143 mmol/L (135-144) Potassium Level 4.2 mmol/L (3.5-5.1) Chloride Level 107 mmol/L (97-110) Carbon Dioxide Level 28 mmol/L (21-31) Anion Gap 8 (5-13) Blood Urea Nitrogen 23 mg/dl (7-20) Creatinine 1.45 mg/dl (0.44-1.00) Est Glomerular Filtrat Rate mL/min mL/min (>60) Glucose Level 102 mg/dl (70-220) Calcium Level 9.1 mg/dl (8.4-10.2) Magnesium Level 2.3 mg/dl (1.7-2.5) Total Bilirubin 0.2 mg/dl (0.2-1.3) Direct Bilirubin 0.00 mg/dl (0.00-0.20) Indirect Bilirubin 0.2 mg/dl (0-1.1) Aspartate Amino Transf (AST/SGOT) 16 IU/L (15-46) Alanine Aminotransferase (ALT/SGPT) 23 IU/L (13-69) Alkaline Phosphatase 96 IU/L (42-121) B-Type Natriuretic Peptide 4720 PG/ML (0-125) Total Protein 6.0 g/dl (6.1-8.1) Albumin 3.4 g/dl (3.3-4.9) Globulin 2.60 g/dl (1.3-3.2) Albumin/Globulin Ratio 1.30 JANESSA DODSON MD Apr 14, 2018 13:10
[2018-04-14] MEDS ORDERED: ALLO100T PO (13:17)
[2018-04-14] MEDS ORDERED: SPIR25TA PO (13:19)
== END 2018-04-14 17:00 | disposition home or self-care (01) | DRG 291 ==
LOC: E/R 12:06 → 6WM 18:56
PROVIDERS: ADMIT Internal Medicine; ATTEND Internal Medicine
DX: I13.0 Hypertensive heart and chronic kidney disease with heart failure and stage 1 through stage 4 chronic kidney disease, or unspecified chronic kidney disease (principal); I50.23 Acute on chronic systolic (congestive) heart failure; N18.1 Chronic kidney disease, stage 1; Z95.810 Presence of automatic (implantable) cardiac defibrillator; I25.10 Atherosclerotic heart disease of native coronary artery without angina pectoris; J44.9 Chronic obstructive pulmonary disease, unspecified; I42.9 Cardiomyopathy, unspecified; D64.9 Anemia, unspecified
CPT/HCPCS: 36415; 71045; 80053; 80061; 80162; 83735; 83880; 84439; 84443; 84484; 85025; 85610; 93005; 93306; 93308; 96374; J1940; J3475

== ENCOUNTER 2018-11-23 19:36 | Inpatient (IN) | payer MEDICARE, OTHER ==
[~2018-11-23] VITALS: Ht 167.6 cm; Wt 71.4 kg
[~2018-11-23 19:36] MED LIST changes: +ALLO100T PO; -AMIO200T4; -ASPI-831; +ASPI-903 PO; -CALC1TAB98; +CALC600T24 PO; -CARV25TA79; +CARV25TA79 PO; +CARV6.2579 ORAL; +COLC0.6T6 ORAL; +FAMO20TA18 PO; -FINOFIBRATE; -FURO-109 PO; -FURO20TA3; +FURO40TA4 PO; +HYDR-3670 PO; -HYDR-3672; +HYDR-3672 PO; +ISM20 PO; +ISOS10TA2 PO; -ISOS20TA; +LISI10TA2 ORAL; -LOSA100T3; +METH1ADH5 TP; +METR500T PO; +MULT-345 PO; -NIAC750T; +POTA20TA15 PO; +SPIR25TA PO; -TIOT18CA; -[UNRECOGNIZED DRUG - CODE]
[2018-11-23] MEDS ORDERED: NITROGLYCERIN 2% 1 GM OINT PKT TD STA (20:29)
[2018-11-23] MEDS ORDERED: FUROSEMIDE 40 MG INJ IV STA (20:29)
[2018-11-23] MEDS ORDERED: ASPIRIN 81 MG TAB PO STA (20:29)
[2018-11-23] MEDS ORDERED: ONDANSETRON 4 MG INJ IV PRN (22:00)
[2018-11-23] MEDS ORDERED: ACETAMINOPHEN 325 MG TAB PO PRN (22:00)
[2018-11-24 01:56] VITALS: BP 120/84; PULSE 86; RESP 16
[2018-11-24 02:01] VITALS: Ht 167.6 cm; Wt 71.4 kg
[2018-11-24 05:29] VITALS: BP 132/90; PULSE 95; RESP 18
[2018-11-24 07:24] VITALS: BP 129/67; PULSE 78; RESP 17
[2018-11-24] MEDS: ASPIRIN 81 MG TAB PO SCH (08:16)
[2018-11-24] MEDS: FAMOTIDINE 20 MG TAB PO SCH (08:16)
[2018-11-24] MEDS: CALCIUM CARBONATE 500 MG CHEW TAB PO SCH ×2 (08:16→20:04)
[2018-11-24] MEDS: POTASSIUM CHLORIDE (SR) 20 MEQ TAB PO SCH (08:16)
[2018-11-24] MEDS: ISOSORBIDE DINITRATE 10 MG TAB PO SCH ×2 (08:16→20:04)
[2018-11-24] MEDS: MULTIVITAMINS/MINERALS TAB PO SCH (08:17)
[2018-11-24] MEDS ORDERED: ALLOPURINOL 100 MG TAB PO SCH (09:00)
[2018-11-24] MEDS ORDERED: FUROSEMIDE 40 MG INJ IV SCH (09:00)
[2018-11-24] MEDS ORDERED: NON-FORMULARY/PATIENT OWN MED (Calcium Carbonate* 600 MG) PO SCH (09:00)
[2018-11-24 11:49] VITALS: BP 114/73; PULSE 86; RESP 17
[2018-11-24] MEDS: COLCHICINE 0.6 MG CAP PO SCH ×2 (13:06→20:04)
[2018-11-24] MEDS: ENOXAPARIN 30 MG/0.3 ML SYG SC SCH (13:14)
[2018-11-24] MEDS: LEVALBUTEROL (NEB) 0.63 MG/3 ML AMP HHN SCH ×3 (15:10→20:47)
[2018-11-24 15:28] VITALS: BP 119/83; PULSE 73; RESP 17
[2018-11-24] MEDS: FUROSEMIDE 40 MG INJ IV SCH (17:41)
[2018-11-24 20:05] VITALS: BP 114/85; PULSE 96; RESP 17
[2018-11-25] VITALS: BP 117/66; PULSE 77; RESP 18
[2018-11-25] MEDS: LEVALBUTEROL (NEB) 0.63 MG/3 ML AMP HHN SCH ×6 (01:08→20:36)
[2018-11-25 04:12] VITALS: BP 124/78; PULSE 91; RESP 17
[2018-11-25] MEDS: FUROSEMIDE 40 MG INJ IV SCH ×2 (05:06→17:21)
[2018-11-25 07:22] VITALS: BP 119/63; PULSE 81; RESP 19
[2018-11-25] MEDS: COLCHICINE 0.6 MG CAP PO SCH ×2 (08:13→21:37)
[2018-11-25] MEDS: MULTIVITAMINS/MINERALS TAB PO SCH (08:13)
[2018-11-25] MEDS: POTASSIUM CHLORIDE (SR) 20 MEQ TAB PO SCH (08:14)
[2018-11-25] MEDS: CALCIUM CARBONATE 500 MG CHEW TAB PO SCH ×2 (08:14→21:37)
[2018-11-25] MEDS: FAMOTIDINE 20 MG TAB PO SCH (08:14)
[2018-11-25] MEDS: ISOSORBIDE DINITRATE 10 MG TAB PO SCH ×2 (08:14→21:37)
[2018-11-25] MEDS: ASPIRIN 81 MG TAB PO SCH (08:14)
[2018-11-25] MEDS: ENOXAPARIN 30 MG/0.3 ML SYG SC SCH (09:05)
[2018-11-25 12:15] VITALS: BP 112/70; PULSE 81; RESP 19
[2018-11-25 16:00] VITALS: BP 117/67; PULSE 76; RESP 19
[2018-11-25] MEDS ORDERED: MAGNESIUM SULFATE 2 GM/50 ML 50 ML IVPB ONE (18:15)
[2018-11-25 20:00] VITALS: BP 122/77; PULSE 85; RESP 20
[2018-11-26] VITALS: BP 113/77; PULSE 71; RESP 20
[2018-11-26] MEDS: LEVALBUTEROL (NEB) 0.63 MG/3 ML AMP HHN SCH ×9 (01:30→20:20)
[2018-11-26 04:00] VITALS: BP 115/80; PULSE 67; RESP 20
[2018-11-26 07:31] VITALS: BP 116/76; PULSE 65; RESP 20
[2018-11-26] MEDS: CALCIUM CARBONATE 500 MG CHEW TAB PO SCH ×2 (08:36→20:31)
[2018-11-26] MEDS: MULTIVITAMINS/MINERALS TAB PO SCH (08:37)
[2018-11-26] MEDS: COLCHICINE 0.6 MG CAP PO SCH ×2 (08:37→20:30)
[2018-11-26] MEDS: FAMOTIDINE 20 MG TAB PO SCH (08:37)
[2018-11-26] MEDS: SPIRONOLACTONE 25 MG TAB PO SCH (08:37)
[2018-11-26] MEDS: ASPIRIN 81 MG TAB PO SCH (08:37)
[2018-11-26] MEDS: FUROSEMIDE 40 MG TAB PO SCH (08:38)
[2018-11-26] MEDS: POTASSIUM CHLORIDE (SR) 20 MEQ TAB PO SCH (08:39)
[2018-11-26] MEDS: ISOSORBIDE DINITRATE 10 MG TAB PO SCH ×2 (08:39→20:31)
[2018-11-26] MEDS: ENOXAPARIN 30 MG/0.3 ML SYG SC SCH (08:43)
[2018-11-26 11:33] VITALS: BP 120/72; PULSE 76; RESP 20
[2018-11-26 15:46] VITALS: BP 116/61; PULSE 72; RESP 20
[2018-11-26 19:23] VITALS: BP 108/68; PULSE 75; RESP 17
[2018-11-26] MEDS: GUAIFENESIN/DM 5ML CUP PO PRN (19:50)
[2018-11-27] VITALS (7 sets, daily range): BP systolic 110–150; BP diastolic 62–74; PULSE 52–83; RESP 17–18
[2018-11-27] MEDS: LOPERAMIDE 2 MG CAP PO PRN ×2 (00:57→14:53)
[2018-11-27] MEDS: LEVALBUTEROL (NEB) 0.63 MG/3 ML AMP HHN SCH ×5 (01:00→17:20)
[2018-11-27] MEDS: ASPIRIN 81 MG TAB PO SCH (08:07)
[2018-11-27] MEDS: CALCIUM CARBONATE 500 MG CHEW TAB PO SCH ×2 (08:07→21:28)
[2018-11-27] MEDS: POTASSIUM CHLORIDE (SR) 20 MEQ TAB PO SCH (08:07)
[2018-11-27] MEDS: COLCHICINE 0.6 MG CAP PO SCH ×2 (08:07→21:28)
[2018-11-27] MEDS: SPIRONOLACTONE 25 MG TAB PO SCH (08:08)
[2018-11-27] MEDS: MULTIVITAMINS/MINERALS TAB PO SCH (08:08)
[2018-11-27] MEDS: FAMOTIDINE 20 MG TAB PO SCH (08:08)
[2018-11-27] MEDS: FUROSEMIDE 40 MG TAB PO SCH (08:10)
[2018-11-27] MEDS: ISOSORBIDE DINITRATE 10 MG TAB PO SCH ×2 (08:11→21:28)
[2018-11-27] MEDS: ENOXAPARIN 30 MG/0.3 ML SYG SC SCH (08:16)
[2018-11-27] MEDS ORDERED: VANCOMYCIN HCL 250 MG/5ML POSYG PO SCH (14:30)
[2018-11-27] MEDS: metroNIDAZOLE 500 MG TAB PO SCH ×2 (14:53→21:28)
[2018-11-28] VITALS: BP 122/70; PULSE 71; RESP 20
[2018-11-28] MEDS: LEVALBUTEROL (NEB) 0.63 MG/3 ML AMP HHN SCH ×6 (01:44→21:12)
[2018-11-28 04:00] VITALS: BP 118/73; PULSE 76; RESP 17
[2018-11-28] MEDS: metroNIDAZOLE 500 MG TAB PO SCH ×3 (06:19→22:48)
[2018-11-28 08:02] VITALS: BP 121/76; PULSE 75; RESP 24
[2018-11-28] MEDS: CALCIUM CARBONATE 500 MG CHEW TAB PO SCH ×2 (08:36→22:48)
[2018-11-28] MEDS: POTASSIUM CHLORIDE (SR) 20 MEQ TAB PO SCH (08:36)
[2018-11-28] MEDS: ASPIRIN 81 MG TAB PO SCH (08:36)
[2018-11-28] MEDS: FAMOTIDINE 20 MG TAB PO SCH (08:36)
[2018-11-28] MEDS: ISOSORBIDE DINITRATE 10 MG TAB PO SCH ×2 (08:38→22:48)
[2018-11-28] MEDS: SPIRONOLACTONE 25 MG TAB PO SCH (08:38)
[2018-11-28] MEDS: MULTIVITAMINS/MINERALS TAB PO SCH (08:38)
[2018-11-28] MEDS: FUROSEMIDE 40 MG TAB PO SCH (08:38)
[2018-11-28] MEDS: ENOXAPARIN 30 MG/0.3 ML SYG SC SCH (08:53)
[2018-11-28] MEDS: COLCHICINE 0.6 MG CAP PO SCH ×2 (10:24→22:48)
[2018-11-28 11:48] VITALS: BP 106/68; PULSE 74; RESP 24
[2018-11-28] MEDS: LOPERAMIDE 2 MG CAP PO PRN (11:58)
[2018-11-28] MEDS: GUAIFENESIN/DM 5ML CUP PO PRN (16:04)
[2018-11-28 16:07] VITALS: BP 100/63; PULSE 67; RESP 24
[2018-11-28 19:43] VITALS: BP 107/77; PULSE 65; RESP 22
[2018-11-28] MEDS: DICYCLOMINE 10 MG CAP PO PRN (22:48)
[2018-11-29] VITALS: BP 119/68; PULSE 83; RESP 18
[2018-11-29] MEDS: LEVALBUTEROL (NEB) 0.63 MG/3 ML AMP HHN SCH ×6 (01:13→20:08)
[2018-11-29 04:00] VITALS: BP 118/68; PULSE 67; RESP 17
[2018-11-29] MEDS: metroNIDAZOLE 500 MG TAB PO SCH ×3 (06:02→22:52)
[2018-11-29 07:50] VITALS: BP 116/75; PULSE 75
[2018-11-29] MEDS: MULTIVITAMINS/MINERALS TAB PO SCH (08:06)
[2018-11-29] MEDS: FUROSEMIDE 40 MG TAB PO SCH (08:06)
[2018-11-29] MEDS: CALCIUM CARBONATE 500 MG CHEW TAB PO SCH ×2 (08:06→20:27)
[2018-11-29] MEDS: COLCHICINE 0.6 MG CAP PO SCH ×2 (08:06→20:29)
[2018-11-29] MEDS: POTASSIUM CHLORIDE (SR) 20 MEQ TAB PO SCH (08:07)
[2018-11-29] MEDS: ISOSORBIDE DINITRATE 10 MG TAB PO SCH ×2 (08:07→20:27)
[2018-11-29] MEDS: FAMOTIDINE 20 MG TAB PO SCH (08:07)
[2018-11-29] MEDS: SPIRONOLACTONE 25 MG TAB PO SCH (08:07)
[2018-11-29] MEDS: ASPIRIN 81 MG TAB PO SCH (08:08)
[2018-11-29] MEDS: ENOXAPARIN 30 MG/0.3 ML SYG SC SCH (08:11)
[2018-11-29 11:47] VITALS: BP 124/60; PULSE 56; RESP 20
[2018-11-29 15:21] VITALS: BP 125/68; PULSE 72; RESP 16
[2018-11-29] MEDS: DICYCLOMINE 10 MG CAP PO PRN ×2 (15:27→20:27)
[2018-11-29 19:45] VITALS: BP 121/80; PULSE 84; RESP 20
[2018-11-30] VITALS: BP 125/73; RESP 18
[2018-11-30] MEDS: LEVALBUTEROL (NEB) 0.63 MG/3 ML AMP HHN SCH ×5 (01:11→17:00)
[2018-11-30 03:44] VITALS: BP 123/65; RESP 18
[2018-11-30] MEDS: metroNIDAZOLE 500 MG TAB PO SCH ×2 (05:43→13:56)
[2018-11-30 07:41] VITALS: BP 102/71; PULSE 79; RESP 18
[2018-11-30] MEDS: MULTIVITAMINS/MINERALS TAB PO SCH (08:49)
[2018-11-30] MEDS: COLCHICINE 0.6 MG CAP PO SCH (08:49)
[2018-11-30] MEDS: ASPIRIN 81 MG TAB PO SCH (08:50)
[2018-11-30] MEDS: CALCIUM CARBONATE 500 MG CHEW TAB PO SCH (08:50)
[2018-11-30] MEDS: POTASSIUM CHLORIDE (SR) 20 MEQ TAB PO SCH (08:51)
[2018-11-30] MEDS: ISOSORBIDE DINITRATE 10 MG TAB PO SCH (08:51)
[2018-11-30] MEDS: SPIRONOLACTONE 25 MG TAB PO SCH (08:52)
[2018-11-30] MEDS: FAMOTIDINE 20 MG TAB PO SCH (08:53)
[2018-11-30] MEDS: FUROSEMIDE 40 MG TAB PO SCH (08:53)
[2018-11-30 08:54] VITALS: BP 114/72; PULSE 82
[2018-11-30] MEDS: ENOXAPARIN 30 MG/0.3 ML SYG SC SCH (09:01)
[2018-11-30] MEDS: GUAIFENESIN/DM 5ML CUP PO PRN (11:30)
[2018-11-30 11:45] VITALS: BP 107/72; PULSE 91; RESP 18
[2018-11-30 15:32] VITALS: BP 113/75; PULSE 72; RESP 18
== END 2018-11-30 16:48 | disposition home or self-care (01) | DRG 291 ==
LOC: E/R 19:36 → TEL 21:39
PROVIDERS: ADMIT Internal Medicine; ATTEND Internal Medicine
DX: I13.0 Hypertensive heart and chronic kidney disease with heart failure and stage 1 through stage 4 chronic kidney disease, or unspecified chronic kidney disease (principal); I50.23 Acute on chronic systolic (congestive) heart failure; I31.3 Pericardial effusion (noninflammatory); N17.9 Acute kidney failure, unspecified; A04.72 Enterocolitis due to Clostridium difficile, not specified as recurrent; N18.9 Chronic kidney disease, unspecified; R10.32 Left lower quadrant pain
CPT/HCPCS: 36415; 71045; 80048; 80053; 82550; 82553; 83735; 83880; 84484; 85025; 85610; 85730; 87075; 87081; 93005; 93306; 94640; 94664; 96374; J1650; J1940; J3475